=== PATIENT | female | born 2000 | race Caucasian/White ===

== ENCOUNTER 2020-07-02 18:23 | Emergency (ER) | payer SELFPAY ==
[~2020-07-02] VITALS: Ht 167.6 cm; Wt 127.0 kg
[2020-07-02 18:49] VITALS: Ht 167.6 cm; Wt 127.0 kg
[2020-07-02 23:20] VITALS: BP 140/94
== END 2020-07-02 23:20 | disposition home or self-care (01) ==
LOC: ED 18:23
DX: R51.9 Headache, unspecified (principal)